=== PATIENT | male | born 1960 | race Caucasian/White ===

== ENCOUNTER 2024-03-29 06:56 | Day surgery (SDC) | payer OTHER, SELFPAY ==
[2024-02-24 13:23] LABS: Absolute Eosinophils 0.2 K/uL (0-0.5); Absolute Monocytes 0.5 K/uL (0.1-1.3); Basophils % 0.5 % (0-1.3); Eosinophils % 2.5 % (0-4.4); Hematocrit 47.3 % (39.6-49.0); Lymphocytes % 14.9 % (15.3-44.8); MCH 32.3 pg (27.0-35.0); MCHC 33.8 g/dL (32.0-36.0); MCV 95.5 fL (80-100); MPV 9.3 fL (7.6-11.3); Monocytes % 7.8 % (3.3-12.3); Neutrophils % 74.3 % (41.7-73.7); Nucleated Red Blood Cells % 0.1 % (0-0); Platelets 180 thou/uL (152-406); RBC Red Blood Cell Count 4.95 M/uL (4.33-5.43); Red Cell Distribution Width 15.6 % (12.1-15.2)
[2024-02-24 13:27] LABS: Anion Gap 10.8 mEq/L (5.0-15.0); Potassium 3.8 mEq/L (3.5-5.1)
--- NOTE | 2024-02-27 12:42 | EKG ---
Test Date: 2024-02-24 Test Time: 12:25:20 [employer]: CAMILA MEASUREMENT RESULTS: Intervals: Rate: 88 SC: 152 QRSD: 78 QT: 340 QTc: 411 [place]: P: 72 SC: 152 QRS: 29 T: 53 INTERPRETIVE STATEMENTS: Sinus rhythm with marked sinus arrhythmia Otherwise normal ECG No previous ECG available for comparison Electronically Signed On 02-27-24 12:39:23 CDT by Mandeep Lopez
[2024-03-22 14:01] LABS: Absolute Basophils 0.1 K/uL (0-0.5); Absolute Eosinophils 0.3 K/uL (0-0.5); Absolute Lymphocytes (CBC) 1.4 K/uL (0.7-4.9); Absolute Monocytes 0.6 K/uL (0.1-1.3); Absolute Neutrophil 4.8 K/uL (1.8-8.0); Basophils % 0.8 % (0-1.3); Eosinophils % 3.6 % (0-4.4); Hematocrit 48.2 % (39.6-49.0); Hemoglobin 16.1 g/dL (13.6-17.9); Lymphocytes % 19.6 % (15.3-44.8); MCH 31.7 pg (27.0-35.0); MCHC 33.4 g/dL (32.0-36.0); MPV 9.5 fL (7.6-11.3); Monocytes % 7.9 % (3.3-12.3); Neutrophils % 68.1 % (41.7-73.7); Nucleated Red Blood Cells % 0.1 % (0-0); Platelets 208 thou/uL (152-406); RBC Red Blood Cell Count 5.08 M/uL (4.33-5.43); Red Cell Distribution Width 16.3 % (12.1-15.2)
[2024-03-22 14:14] LABS: Anion Gap 7.9 mEq/L (5.0-15.0); Potassium 3.9 mEq/L (3.5-5.1)
[2024-03-29] MEDS: NA CHLORIDE 0.9% 1,000 ML ONE (06:56)
[2024-03-29] MEDS ORDERED: propofoL 200 MG/20 ML VIAL IV ONE ×2 (08:44→09:54)
[2024-03-29] MEDS ORDERED: LIDOCAINE 1% MPF 5 ML VIAL ONE (08:44)
[2024-03-29 11:35] VITALS: BP 134/78; TEMP 98.2; O2SAT 95
== END 2024-03-29 11:20 | disposition home or self-care (01) ==
LOC: OR 06:56
PROVIDERS: ATTEND Internal Medicine Gastroenterology
PROC: 0DBH8ZX Excision of Cecum, Via Natural or Artificial Opening Endoscopic, Diagnostic (ICD-10-PCS; 2024-03-29)
PROC: 0DB98ZX Excision of Duodenum, Via Natural or Artificial Opening Endoscopic, Diagnostic (ICD-10-PCS; 2024-03-29)
PROC: 0DB78ZX Excision of Stomach, Pylorus, Via Natural or Artificial Opening Endoscopic, Diagnostic (ICD-10-PCS; 2024-03-29)
PROC: 0DB68ZX Excision of Stomach, Via Natural or Artificial Opening Endoscopic, Diagnostic (ICD-10-PCS; 2024-03-29)
PROC: 0DB28ZX Excision of Middle Esophagus, Via Natural or Artificial Opening Endoscopic, Diagnostic (ICD-10-PCS; 2024-03-29)
PROC: 0DB38ZX Excision of Lower Esophagus, Via Natural or Artificial Opening Endoscopic, Diagnostic (ICD-10-PCS; 2024-03-29)
PROC: 0DBK8ZX Excision of Ascending Colon, Via Natural or Artificial Opening Endoscopic, Diagnostic (ICD-10-PCS; principal; 2024-03-29 08:30)
PROC: 0DBN8ZX Excision of Sigmoid Colon, Via Natural or Artificial Opening Endoscopic, Diagnostic (ICD-10-PCS; 2024-03-29 08:30)
DX: K59.1 Functional diarrhea (principal); R63.0 Anorexia; K51.50 Left sided colitis without complications; R93.5 Abnormal findings on diagnostic imaging of other abdominal regions, including retroperitoneum; K57.30 Diverticulosis of large intestine without perforation or abscess without bleeding; R11.2 Nausea with vomiting, unspecified; B37.81 Candidal esophagitis; K29.50 Unspecified chronic gastritis without bleeding; K21.00 Gastro-esophageal reflux disease with esophagitis, without bleeding; D12.2 Benign neoplasm of ascending colon; D12.0 Benign neoplasm of cecum; D12.5 Benign neoplasm of sigmoid colon
CPT/HCPCS: 45385; 45384; 45380; 93005; 85025 ×2; 80048 ×2; 36415 ×2; 88312; 82947 ×2; 88305; 43239; J2704 ×2; J2001; J7030; J2003